=== PATIENT | male | born 1980 | race Caucasian/White ===

== ENCOUNTER 2018-06-22 07:05 | Emergency (ER) | payer SELFPAY ==
[2018-06-22 07:30] VITALS: BP 124/89
--- NOTE | 2018-06-22 07:47 | UC ---
Dental HPI - HPI Summary HPI Summary: 38-year-old male comes in today with a complaint of right facial swelling. This started several days ago and is getting worse. The its moderate to severe in the patient's unable to sleep. Patient has been taking ibuprofen and Tylenol with minimal relief of pain. Chews tobacco and that is where he puts his tobacco. - History of Current Complaint Chief Complaint: UCDentalProblem Stated Complaint: FACIAL SWELLING Time Seen by Provider: 06/22/18 07:34 Pain Intensity: 8 - Allergies/Home Medications Allergies/Adverse Reactions: Allergies Allergy/AdvReac Type Severity Reaction Status Date / Time No Known Allergies Allergy Verified 06/22/18 07:18 Home Medications: Home Medications Acetaminophen TAB* [Tylenol TAB*] 1,500 mg PO Q4H PRN 06/22/18 [History Confirmed 06/22/18] Ibuprofen TAB* [Advil TAB*] 200 mg PO Q6H PRN 06/22/18 [History Confirmed ] PMH/Surg Hx/FS Hx/Imm Hx Previously Healthy: Yes - Surgical History Surgical History: None - Family History Known Family History: Positive: Diabetes - Social History Alcohol Use: Occasionally Substance Use Type: None Smoking Status (MU): Never Smoked Tobacco Type: Smokeless Tobacco Amount Used/How Often: 1 can/day Review of Systems Constitutional: Negative Skin: Negative Eyes: Negative ENT: Other - DENTAL CARIES Respiratory: Negative Cardiovascular: Negative Gastrointestinal: Negative Motor: Negative Neurovascular: Negative Musculoskeletal: Negative Neurological: Negative Psychological: Negative Is Patient Immunocompromised?: No All Other Systems Reviewed And Are Negative: Yes Physical Exam Triage Information Reviewed: Yes Appearance: Well-Appearing, No Pain Distress, Well-Nourished Vital Signs: Initial Vital Signs Temp 98.1 F 06/22/18 07:20 Pulse 71 06/22/18 07:20 Resp 15 06/22/18 07:20 BP 124/89 06/22/18 07:20 Pulse Ox 100 06/22/18 07:20 Vital Signs Reviewed: Yes Eye Exam: Normal Eyes: Positive: Conjunctiva Clear ENT Exam: Normal ENT: Positive: Other - There is a swelling in the right lower jaw adjacent to a decayed molar. There is no drainage. The parotid and submandibular glands are nonswollen and nontender. Neck exam: Normal Neck: Positive: Supple, Nontender Respiratory Exam: Normal Respiratory: Positive: Lungs clear, Normal breath sounds, No respiratory distress Cardiovascular Exam: Normal Cardiovascular: Positive: RRR Musculoskeletal Exam: Normal Musculoskeletal: Positive: Strength Intact, ROM Intact Neurological Exam: Normal Neurological: Positive: Alert, Muscle Tone Normal Psychological Exam: Normal Psychological: Positive: Age Appropriate Behavior Skin Exam: Normal Dental Complaint Course/Dx - Course Course Of Treatment: Start antibiotics and given a short course of pain medications. This appears to be a dental abscess. Because the patient chews tobacco I let the patient know that he needs to get this checked by her dentist to ensure that it resolves completely. - Differential Dx/Diagnosis Provider Diagnoses: DENTAL ABSCESS Discharge - Sign-Out/Discharge Documenting (check all that apply): Patient Departure All imaging exams completed and their final reports reviewed: No Studies - Discharge Plan Condition: Stable Disposition: HOME Prescriptions: Amoxicillin/Clavulanate TAB* [Augmentin TAB 875*] 875 mg PO BID #20 tab HYDROcodone/ACETAMIN 5-325 MG* [[place] 5-325 TAB*] 1 tab PO Q4H PRN #15 tab MDD 6 PRN Reason: Pain Patient Education Materials: Dental Abscess (ED) Referrals: [facility] [Outside] Additional Instructions: FOLLOW UP WITH YOUR DENTIST. GET RECHECKED FOR ANY WORSENING OF YOUR CONDITION OR QUESTIONS OR CONCERNS. - Billing Disposition and Condition Condition: STABLE Disposition: Home
== END 2018-06-22 07:54 | disposition home or self-care (01) ==
LOC: UCCORT 07:05
DX: K04.7 Periapical abscess without sinus (principal); K02.9 Dental caries, unspecified; F17.220 Nicotine dependence, chewing tobacco, uncomplicated
CPT/HCPCS: 99202; G0463